=== PATIENT | female | born 1980 | race Caucasian/White ===

== ENCOUNTER 2018-11-08 05:54 | Emergency (ER) | payer MEDICAID ==
[~2018-11-08] VITALS: Ht 160 cm; Wt 91.6 kg
[2018-11-08] MEDS ORDERED: CYCLOBENZAPRINE 10 MG (FLEXERIL) TAB PO STA (06:12)
[2018-11-08] MEDS ORDERED: KETOROLAC 60 MG/2 ML VIAL IM ONE (06:15)
--- NOTE | 2018-11-08 06:19 | ED Upper Extremity ---
General Chief Complaint: Upper Extremity Stated Complaint: CAN'T MOVE LEFT HAND/ STARTING GO KOLBY Source: patient Exam Limitations: no limitations History of Present Illness Date Seen by Provider: November 08, 2018 Time Seen by Provider: 06:00 Initial Comments Patient presents to ER with her father and chief complaint of since yesterday about 5:00 she was starting and motor with her right arm and she certainly appears edges and pain in her left medial forearm. She took some Aleve but the pain still here this morning and she has to go to work. She says been under a lot of stress lately with a divorce or separation. She doesn't have a history of neck pain or back pain. No history of surgeries. She states that her history of back problems is that she carries all her stress in her back and shoulders. She has no dyspnea tenderness or paresthesias in her elbow shoulder or neck. No loss of control of bowel or bladder, weakness numbness or saddle anesthesia. She does smoke pack cigarettes per day. Allergies and Home Medications Allergies Coded Allergies: No Known Drug Allergies (Verified Allergy, Unknown, 07/17/08) Patient Home Medication List Home Medication List Reviewed: Yes Review of Systems Constitutional: No chills, No diaphoresis EENTM: No ear discharge, No hearing loss, No ear pain Respiratory: No cough, No short of breath Cardiovascular: No chest pain, No edema Gastrointestinal: No abdominal pain, No constipation, No diarrhea Genitourinary: No discharge, No dysuria Past Aoiqxoj-Rznxxc-Cwllnr Hx Patient Social History Alcohol Use: Denies Use Recreational Drug Use: Yes Drug of Choice: MJ Smoking Status: Current Everyday Smoker Type Used: Cigarettes Recent Foreign Travel: No Contact w/Someone Who Travel: No Past Medical History Reproductive Disorders: No Physical Exam Vital Signs Capillary Refill : Height, Weight, BMI Height: '" Weight: lbs. oz. kg; BMI Method: General Appearance: WD/WN, no apparent distress HEENT: normal ENT inspection, pharynx normal Neck: full range of motion, normal inspection Cardiovascular: normal peripheral pulses, regular rate, rhythm, no edema Respiratory: lungs clear, normal breath sounds, no respiratory distress, no accessory muscle use Shoulder: normal inspection, non-tender, no evidence of injury, normal ROM Elbow/Forearm: normal inspection, non-tender, no evidence of injury, normal ROM , Left Hand: normal inspection, no evidence of injury, normal ROM, Left, soft tissue tenderness (tender to light palpation over the distal ulna) Neurologic/Tendon: normal sensation, normal motor functions, normal tendon functions, responds to pain, no evidence tendon injury Neurologic/Psychiatric: alert, normal mood/affect, oriented x 3 Skin: normal color, warm/dry Progress/Results/Core Measures Results/Orders My Orders Orders - SHINE SALAS Ketorolac Injection (Toradol Injection) (11/08/18 06:15) Cyclobenzaprine Tablet (Flexeril Tablet) (11/08/18 06:12) Progress Progress Note : Time: 06:18 Progress Note She was pulling the motor with her right arm and has now some paresthesias tenderness to light touch in her left arm. We inspected her neck earlier but it was nontender and full range of motion and no evidence of deformity. She only has tenderness in her distal ulna there is no history of injury nor evidence of clinical injury. We will treat this as a possible laboratory radiculopathy and put her on some NSAIDs and muscle relaxants. We'll have her follow-up next week with her primary care. If she is not seeing some improvement we will suggest maybe steroids. Departure Impression Primary Impression: Paresthesia of left upper extremity Disposition: 01 HOME, SELF-CARE Condition: Stable Departure-Patient Inst. Decision time for Depature: 06:20 Referrals: KEY CAMPOS DO (PCP) Primary Care Physician MUKUL MAC APRN (Family) Primary Care Physician Patient Instructions: Common Wrist Injuries (DC), Paresthesias (DC) Add. Discharge Instructions: Please use heat, topical creams such as your tiger balm, icy hot, Biofreeze as necessary. You may apply these to your neck as well and see if this gives her some relief. Take the Aleve 2 capsules twice a day for the next 2 weeks. Use the muscle relaxant one capsule every 8 hours as necessary if it helps. If you're not seeing some improvement next week follow-up with your primary care provider and discuss further management. Reduce how much you smoke as this may decrease the inflammation and help you heal faster. Go through the range of motion exercises as demonstrated multiple times throughout the day. All discharge instructions reviewed with patient and/or family. Voiced understanding. Scripts Cyclobenzaprine HCl (Cyclobenzaprine HCl) 10 Mg Tablet 10 MG PO Q8H PRN for SPASMS, #20 TAB 0 Refills Prov: SHINE SALAS 11/08/18 Work/School Note: Work Release Form Date Seen in the Emergency Department: November 08, 2018 Return to Work: November 09, 2018 Restrictions: No Restrictions SHINE SALAS November 08, 2018 06:19
[2018-11-08] MEDS ORDERED: CYCL10TA9 PO ×2 (06:23→06:27)
[2018-11-08 06:29] VITALS: BP 121/72
== END 2018-11-08 06:29 | disposition home or self-care (01) ==
LOC: EDUNIT# 05:54 → ER 05:57
DX: R20.2 Paresthesia of skin (principal); F12.10 Cannabis abuse, uncomplicated; F17.210 Nicotine dependence, cigarettes, uncomplicated
CPT/HCPCS: 99284

== ENCOUNTER 2020-07-31 05:29 | Outpatient (RCR) | payer MEDICAID ==
[~2020-07-31] VITALS: Ht 160.2 cm; Wt 99.8 kg
[~2020-07-31 05:29] MED LIST: CARI4.5C PO; CYCL10TA9 PO; NAPR-1070 PO; OXCA600T10 PO
[2020-08-02] MEDS ORDERED: PANT40TA2 PO (11:17)
[2020-08-02] MEDS ORDERED: SUCR1TAB36 PO (13:29)
== END 2020-08-01 11:06 | disposition home or self-care (01) ==
LOC: PREOP 05:29
PROVIDERS: ATTEND Surgery
DX: Z01.818 Encounter for other preprocedural examination (principal); K62.5 Hemorrhage of anus and rectum

== ENCOUNTER 2020-08-02 11:00 | Day surgery (SDC) | payer MEDICAID ==
[~2020-08-02] VITALS: Ht 160.2 cm; Wt 99.8 kg
[2020-08-02] VITALS (11 sets, daily range): BP systolic 108–124; BP diastolic 72–87
[2020-08-02] MEDS ORDERED: NS IV 500 ML 500 ML ONE (11:01)
[2020-08-02] MEDS ORDERED: NS IV 500 ML 500 ML IV PRN (11:15)
[2020-08-02] MEDS ORDERED: LIDOCAINE JELLY 2% 6 ML SYRINGE MM PRN (11:15)
[2020-08-02] MEDS ORDERED: MIDAZOLAM 5 MG/5 ML (VERSED) VIAL IV ONE (11:15)
[2020-08-02] MEDS ORDERED: fentaNYL INJECTION 100 MCG/2 ML AMP IVP ONE (11:15)
--- NOTE | 2020-08-02 11:16 | Conscious Sedation/ASA ---
Conscious Sedation Pre-Proced Time 11:00 ASA Score 2 For ASA 3 and 4: Consider anesthesia and medical clearance. Also, for patients with a history of failed moderate sedation consider anesthesia. Airway Lungs Heart ASA score ASA 1: a normal healthy patient ASA 2: a patient with a mild systemic disease (mid diabetes, controlled hypertension, obesity ASA 3: a patient with a severe systemic disease that limits activity (angina, COPD, prior Myocardial infarction) ASA 4: a patient with an incapacitating disease that is a constant threat to life (CHF, renal failure) ASA 5: a moribund patient not expected to survive 24 hrs. (ruptured aneurysm) ASA 6: a declared brain- patient whose organs are being harvested. For emergent operations, add the letter E after the classification Mallampati Classification Grade 2 Sedation Plan Analgesia, Amnesia, Plan communicated to team members, Discussed options with patient/fam, Discussed risks with patient/fam The patient is an appropriate candidate to undergo the planned procedure, sedation, and anesthesia. The patient immediately re-assessed prior to indication. CHRIS LI MD Aug 02, 2020 11:16
--- NOTE | 2020-08-02 11:16 | Progress Note-Pre Operative ---
Pre-Operative Progress Note H&P Reviewed The H&P was reviewed, patient examined and no changes noted. Date Seen by Provider: Aug 02, 2020 Time Seen by Provider: 11:00 Date H&P Reviewed: Aug 02, 2020 Time H&P Reviewed: 11:00 Pre-Operative Diagnosis: rectal bleed, GERD CHRIS LI MD Aug 02, 2020 11:16
[2020-08-02] MEDS ORDERED: PANT40TA2 PO (11:17)
--- NOTE | 2020-08-02 11:18 | Discharge Inst-Surgical ---
D/C Lap Instructions-KIDO New, Converted, or Re-Newed RX: RX on Chart Follow Up Activity as tolerated High Fiber Diet 25g or more per day Avoid Alcohol, Caffeine, Spicy Klemme and Acid foods. Drink 64 fluid oz or more of fluids per day. Symptoms to Report: Fever over 101 degree F, Nausea/Vomiting If any problems/questions: Contact your physician or go to Emergency Room CHRIS LI MD Aug 02, 2020 11:18
[2020-08-02] MEDS ORDERED: HURRICAINE EXT TUBE (BENZOCAINE) ONE (11:29)
[2020-08-02] MEDS ORDERED: LIDOCAINE JELLY 2% 6 ML SYRINGE ONE (11:29)
[2020-08-02] MEDS ORDERED: HYDROcodone/APAP 5 MG/325 MG (LORTAB) TAB PO PRN (11:30)
[2020-08-02] MEDS ORDERED: morphine INJ 10 MG/ML 1ML (SYR OR VIAL) IVP PRN ×2 (11:30)
[2020-08-02] MEDS ORDERED: ACETAMINOPHEN 325 MG TABLET PO PRN (11:30)
[2020-08-02] MEDS ORDERED: ONDANSETRON 4 MG/2 ML (SDV) Z0FRAN IVP PRN (11:30)
[2020-08-02] MEDS ORDERED: fentaNYL INJECTION 100 MCG/2 ML AMP ONE ×2 (11:31→11:32)
[2020-08-02] MEDS ORDERED: MIDAZOLAM 5 MG/5 ML (VERSED) VIAL ONE ×2 (11:31→11:32)
[2020-08-02] MEDS ORDERED: HURRICAINE EXT TUBE (BENZOCAINE) XX ONE (12:00)
[2020-08-02] MEDS ORDERED: PROPOFOL INJECTION 50 ML IV ONE (12:32)
--- NOTE | 2020-08-02 13:03 | Anesthesia-General Post-Op ---
MAC Patient Condition Mental Status/LOC: Same as Preop Cardiovascular: Satisfactory Nausea/Vomiting: Absent Respiratory: Satisfactory Pain: Controlled Complications: Absent Post Op Complications Complications None Follow Up Care/Instructions Patient Instructions None needed. Anesthesiology Discharge Order Discharge Order Patient is doing well, no complaints, stable vital signs, no apparent adverse anesthesia problems. No complications reported per nursing. CURTIS CASTRO CRNA Aug 02, 2020 13:03
[2020-08-02] MEDS ORDERED: SUCR1TAB36 PO (13:29)
--- NOTE | 2020-08-02 14:55 | OPERATIVE REPORT ---
DATE OF SERVICE: 08/02/2020 ATTENDING PRIMARY COLLET MAKER: JS Sylvester. PREOPERATIVE DIAGNOSES: Dark tarry stools, history of peptic ulcer disease and gastroesophageal reflux disease. POSTOPERATIVE DIAGNOSES: Reflux esophagitis between stage II and III, small hiatal hernia approximately 2.5 cm in size, mild to moderate gastritis, chronic stage II external and internal hemorrhoids. PROCEDURE: EGD with biopsy, colonoscopy. SURGEON: Chris Li MD. ANESTHESIA: Monitored anesthesia care. ESTIMATED BLOOD LOSS: Minimal. FINDINGS: Reflux esophagitis between stage II and III, small hiatal hernia approximately 2.5 cm in size, mild to moderate gastritis, chronic stage II external and internal hemorrhoids. DISPOSITION: The patient tolerated the procedure well. INDICATIONS: The patient is a 40-year-old female referred over to us for rectal bleeding. She states that she has had intermittent episodes of dark tarry stools for the past year. She also has had a history of constipation as well. Upon further questioning, she also does report a longstanding history of gastroesophageal reflux disease and peptic ulcer disease and a lot of this is stress-induced. She does not report any family history of colon cancer. DESCRIPTION OF PROCEDURE: The patient was brought to the endoscopy suite, laid in left lateral decubitus position with head slightly elevated. After adequate IV pain and sedative medications and monitored anesthesia care, the mouthpiece was applied. The endoscope was placed in the mouth, visualizing the pharynx and hypopharyngeal region. Vocal cords, epiglottis and vallecula identified and appeared to be normal. The endoscope was then gently intubated into the esophageal opening and esophagus insufflated. The endoscope was then advanced to the first, second and third portion of esophagus at the level of GE junction, a reflux esophagitis between stage II and III identified. There were no ulcers or strictures identified in this region. A biopsy was taken with forceps with visualization of good hemostasis. The endoscope was then advanced into the stomach and endoscope retroflexed, visualizing a small hiatal hernia approximately 2.5 cm in size. There was a mild to moderate gastritis. No formal ulcerations, polyps, or any neoplasms. A biopsy was taken of the antrum to rule out H. pylori with visualization of good hemostasis. The endoscope was then advanced to the pylorus and the first and second portion of the duodenum, which did not reveal any ulcerations as well as no distal obstructions. The endoscope was then slowly withdrawn while taking a second look and suctioning of residual air with no additional findings. We then proceeded with the colonoscopy portion of the procedure and a digital rectal examination was performed, which revealed chronic stage II external and internal hemorrhoids, not actively edematous nor inflamed and no bleeding. Normal sphincter tone was felt and there were no palpable masses. The endoscope was then intubated to the anus and rectum gently insufflated. The endoscope was then advanced to the valves of Whitley of the rectum with no polyps or any neoplasms identified. We then proceeded through the sigmoid colon where no diverticulosis identified. The endoscope was then advanced to the remainder of the descending, transverse and ascending colon to the cecum. These segments were normal. There were no polyps or any active bleeding sources identified. The endoscope was then slowly withdrawn while taking a second look and suctioning of residual air with no additional findings. The patient tolerated the procedure well. We will recommend the necessary lifestyle and diet accommodation including small and more frequent meals as well as avoidance of eating at night as well as proceeding with smoking cessation as well as avoidance of caffeinated beverages, spicy, greasy and acidic foods. We will also start her on Protonix 40 mg daily as well as Carafate 1 gram q.i.d. for the next 2 weeks, then on a p.r.n. basis. We had also already talked to her about high fiber diet with fiber supplementation and should be at least 25 to 30 grams daily as well as significant amounts of water to promote soft stools on a daily basis. She does not have a family history of colon cancer and if she is asymptomatic from a lower gastrointestinal perspective, she does not need another colonoscopy for another 10 years. Job ID: [id number] DocumentID: [id number] Dictated Date: 08/02/2020 13:06:00 Power Sewing Machine Operator Date: 08/02/2020 14:55:09 Dictated By: CHRIS LI MD
== END 2020-08-02 13:50 | disposition home or self-care (01) ==
LOC: ENDO 11:00
PROVIDERS: ATTEND Surgery
DX: K21.00 Gastro-esophageal reflux disease with esophagitis, without bleeding (principal); K29.50 Unspecified chronic gastritis without bleeding; K44.9 Diaphragmatic hernia without obstruction or gangrene; K64.1 Second degree hemorrhoids; B96.81 Helicobacter pylori [H. pylori] as the cause of diseases classified elsewhere; F20.9 Schizophrenia, unspecified; F31.9 Bipolar disorder, unspecified; F17.210 Nicotine dependence, cigarettes, uncomplicated; Z79.899 Other long term (current) drug therapy; Z88.8 Allergy status to other drugs, medicaments and biological substances; Z87.11 Personal history of peptic ulcer disease; Z80.3 Family history of malignant neoplasm of breast; Z83.3 Family history of diabetes mellitus
CPT/HCPCS: 84703; 88305; 88342

== ENCOUNTER 2021-08-04 12:26 | Emergency (ER) | payer MEDICAID ==
[~2021-08-04] VITALS: Ht 155 cm; Wt 103.0 kg
[~2021-08-04 12:26] MED LIST changes: +CYCL10TA25 PO; -CYCL10TA9 PO; +PANT40TA2 PO; +SUCR1TAB36 PO
--- NOTE | 2021-08-04 12:48 | ED Lower Extremity ---
General Stated Complaint: RIGHT KNEE PAIN Source: patient Exam Limitations: no limitations (LINNETTE MARSHALL) History of Present Illness Date Seen by Provider: Aug 04, 2021 Time Seen by Provider: 12:47 Initial Comments Patient is a 41-year-old female presents ED with right knee pain. Patient states yesterday evening she was walking up a hill with a wagon full of wood when she stepped and felt a loud "pop" in her right knee. She states the knee feels unstable when she walks. Difficulty with plantarflexion with pain to the right posterior knee and right anterior knee. Normal active range of motion. No obvious bone deformity, swelling or bruising. She states she injured her knee last Friday and felt the pain but that improved. No history of previous fracture. Denies any ankle pain, fever, chills. She states she attempts to walk but feels like her knee needs to pop. Denies chest pain, shortness of breath, cough, fever. (LINNETTE MARSHALL) Allergies and Home Medications Allergies Coded Allergies: buspirone (Unverified Allergy, Unknown, 07/27/20) Patient Home Medication List Home Medication List Reviewed: Yes (LINNETTE MARSHALL) Cariprazine Hydrochloride (Vraylar) 4.5 Mg Capsule, 4.5 MG PO DAILY, (Reported) Entered as Reported by: LISSY RICKS on 07/27/20 1036 Hydrocodone/Acetaminophen (Hydrocodone-Acetamin 5-325 mg) 1 Each Tablet, 1 TAB PO Q4H PRN for PAIN-MODERATE (5-7) Prescribed by: JS RAMIREZ on 08/04/21 1353 Naproxen Sodium (Anaprox Ds) 550 Mg Tablet, 550 MG PO PRN, (Reported) Entered as Reported by: LISSY RICKS on 07/27/20 1036 Oxcarbazepine (Oxcarbazepine) 600 Mg Tablet, 600 MG PO DAILY, (Reported) Entered as Reported by: LISSY RICKS on 07/27/20 1036 Pantoprazole Sodium (Protonix) 40 Mg Tablet.dr, 40 MG PO DAILY Prescribed by: CHRIS LI on 08/02/20 1117 Sucralfate (Carafate) 1 Gm Tablet, 1 GM PO QID Prescribed by: SANTIAGO COBB on 08/02/20 1329 [hy] Prescribed by: JS RAMIREZ on 08/04/21 1353 Review of Systems Constitutional: no symptoms reported, see HPI; No chills EENTM: No hearing loss, No ear pain, No blurred vision, No vision loss, No throat pain, No throat swelling Respiratory: No cough, No orthopnea, No short of breath Cardiovascular: No chest pain, No edema Gastrointestinal: No abdominal pain, No diarrhea, No nausea, No vomiting Genitourinary: No decreased output, No discharge Musculoskeletal: joint pain, muscle pain, muscle stiffness Skin: No change in color, No change in hair/nails (LINNETTE MARSHALL) All Other Systems Reviewed Negative Unless Noted: Yes (LINNETTE MARSHALL) Past Cjwzeus-Yacjsj-Saquws Hx Past Medical History Surgeries: Yes (TUBAL, C SECTION 2008; ) Tubal Ligation Respiratory: Yes Asthma Cardiac: No Neurological: No Reproductive Disorders: No Sexually Transmitted Disease: Yes (clamydia) Genitourinary: No Gastrointestinal: No Musculoskeletal: No Endocrine: No HEENT: No Hearing Impairment: Denies Cancer: No Psychosocial: No Sleep Difficulties, Anxiety, PTSD, Bipolar, Schizophrenia, Depression Blood Disorders: No Adverse Reaction/Blood Tranf: No (LINNETTE MARSHALL) Physical Exam Vital Signs Vital Signs - First Documented 08/04/21 12:36 Temp 36.4 Pulse 112 Resp 20 B/P (MAP) 107/47 (67) Pulse Ox 97 O2 Delivery Room Air (MALIK HENSLEY MD) Vital Signs Capillary Refill : (LINNETTE MARSHALL) Height, Weight, BMI Height: 5'3.00" Weight: 202lbs. oz. 91.092866ji; 38.88 BMI Method:Stated General Appearance: WD/WN, no apparent distress HEENT: PERRL/EOMI, normal ENT inspection, TMs normal, pharynx normal Neck: non-tender, full range of motion, supple, normal inspection Cardiovascular: regular rate, rhythm, no edema, no gallop, no JVD Respiratory: chest non-tender, lungs clear, normal breath sounds, no respiratory distress, no accessory muscle use Gastrointestinal: normal bowel sounds, non tender, soft, no organomegaly, no pulsatile mass Back: normal inspection, no CVA tenderness Hips: bilateral hip non-tender, bilateral hip normal inspection, bilateral hip normal range of motion Knees: right knee pain (Right anterior knee tenderness.), right knee soft tissue tenderness Ankles: bilateral ankle non-tender, bilateral ankle normal inspection, bilateral ankle normal range of motion Feet: bilateral foot non-tender, bilateral foot normal inspection, bilateral foot normal range of motion Neurologic/Tendon: normal sensation Neurologic/Psychiatric: forest technology professor II-XII nml as tested, no motor/sensory deficits, alert, normal mood/affect, oriented x 3 Skin: normal color, warm/dry (LINNETTE MARSHALL) Progress/Results/Core Measures Results/Orders Medications Given in ED Current Medications Medications Dose Ordered Sig/Natty Route Start Time Stop Time Status Last Admin Dose Admin Acetaminophen/ Hydrocodone Bitart 1 ea ONCE ONCE PO 08/04/21 13:00 08/04/21 13:01 DC 08/04/21 13:00 1 EA Ketorolac Tromethamine 30 mg ONCE ONCE IM 08/04/21 14:00 08/04/21 14:01 DC 08/04/21 14:06 30 MG (MALIK HENSLEY MD) Vital Signs/I&O 08/04/21 08/04/21 12:36 14:13 Temp 36.4 Pulse 112 98 Resp 20 18 B/P (MAP) 107/47 (67) 117/64 Pulse Ox 97 98 O2 Delivery Room Air Room Air (MALIK HENSLEY MD) Departure Communication (Admissions) X-ray negative for fracture. No large joint effusion noted. Flexion to 90 d egrees with full extension. No specific laxity. Pain with Suad test. Concerning for meniscus injury versus knee ligament injury. Difficulty standing. Ice was applied. Was given dose of pain medication Toradol. Will discharge with pain medication. Continue with naproxen at home. Orthopedic follow-up in 7 to 10 days. Recommend ice and elevate. Thomas wrap was provided with brace. Return precautions were discussed with patient. Further evaluation will be needed. (LINNETTE MARSHALL) Impression Primary Impression: Knee sprain Disposition: HOME, SELF-CARE Condition: Stable Departure-Patient Inst. Decision time for Depature: 13:51 (LINNETTE MARSHALL) Referrals: [facility] (PCP) Primary Care Physician MUKUL MAC APRN (Family) Primary Care Physician ABDULAZIZ HAIDER MD Patient Instructions: Knee Sprain ED Scripts Hydrocodone/Acetaminophen (Hydrocodone-Acetamin 5-325 mg) 1 Each Tablet 1 TAB PO Q4H PRN for PAIN-MODERATE (5-7), #10 TAB Prov: LINNETTE MARSHALL 08/04/21 [hy] No Conflict Check Prov: LINNETTE MARSHALL 08/04/21 ATTENDING PHYSICIAN NOTE: I was physically present as attending physician in the emergency department during the care of this patient, but I was not directly involved in the decision making or delivery of care for this patient. (MALIK HENSLEY MD) LINNETTE MARSHALL Aug 04, 2021 12:48 MALIK HENSLEY MD Aug 04, 2021 19:07
[2021-08-04] MEDS ORDERED: HYDROcodone/APAP 5 MG/325 MG (LORTAB) TAB PO ONE (13:00)
--- NOTE | 2021-08-04 13:28 | Diagnostic Imaging Report ---
CLINICAL HISTORY: Right knee pain. COMPARISON: None. TECHNIQUE: 3 views of the right knee. FINDINGS: There is no acute fracture or dislocation of the right knee. Alignment is anatomic. The imaged joint spaces are preserved. No joint effusion is seen in the right knee. The surrounding soft tissues are unremarkable. IMPRESSION: 1. No acute fracture or dislocation is seen in the right knee. No joint effusion. Dictated by: Dictated on workstation # [id number]
[2021-08-04] MEDS ORDERED: hy (13:53)
[2021-08-04] MEDS ORDERED: ACHD5005 PO (13:53)
[2021-08-04] MEDS ORDERED: KETOROLAC 30 MG/ML VIAL IVP ONE (14:00)
[2021-08-04] MEDS ORDERED: KETOROLAC 30 MG/ML VIAL IM ONE (14:00)
[2021-08-04 14:13] VITALS: BP 117/64
== END 2021-08-04 14:13 | disposition home or self-care (01) ==
LOC: EDUNIT# 12:26 → ER 12:32
DX: S83.91XA Sprain of unspecified site of right knee, initial encounter (principal); J45.909 Unspecified asthma, uncomplicated; F41.9 Anxiety disorder, unspecified; F31.9 Bipolar disorder, unspecified; F20.9 Schizophrenia, unspecified; Z79.899 Other long term (current) drug therapy; X50.1XXA Overexertion from prolonged static or awkward postures, initial encounter
CPT/HCPCS: 73562

== ENCOUNTER 2023-05-06 18:49 | Emergency (ER) | payer MEDICAID ==
[~2023-05-06 18:49] MED LIST changes: +ACHD5005 PO; +hy
[2023-05-06] MEDS ORDERED: HYDROcodone/ACETAMINOPHEN 5 MG/325 MG TABLET PO ONE (20:00)
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
--- NOTE | 2023-05-06 20:27 | Diagnostic Imaging Report ---
EXAMINATION: Left knee radiograph EXAM DATE: 05/06/2023 8:23 PM COMPARISON: None available. HISTORY: left knee pain TECHNIQUE: 3 views FINDINGS: There is no acute fracture, dislocation, or destructive osseous process. The joint spaces are normal. The soft tissues are normal. IMPRESSION: 1. No acute osseous abnormality. Dictated by: Dictated on workstation # [id number]
[2023-05-06] MEDS ORDERED: ACHD5005 PO (20:34)
[2023-05-06 20:41] VITALS: BP 138/89
== END 2023-05-06 20:41 | disposition home or self-care (01) ==
LOC: EDUNIT# 18:49 → ER 18:51
DX: S93.402A Sprain of unspecified ligament of left ankle, initial encounter (principal); F17.210 Nicotine dependence, cigarettes, uncomplicated; X58.XXXA Exposure to other specified factors, initial encounter; Y93.01 Activity, walking, marching and hiking; Y92.59 Other trade areas as the place of occurrence of the external cause; Y99.0 Civilian activity done for income or pay
CPT/HCPCS: 73562

== ENCOUNTER → 2023-06-04 | Outpatient (CLI) | payer MEDICAID ==
--- NOTE | 2023-06-04 12:23 | Diagnostic Imaging Report ---
MRI LT LOWER EXT JOINT W/O TECHNIQUE: Multiplanar, multisequence MR imaging of the left knee was performed without contrast. COMPARISON: None available. INDICATION: Knee pain after injury FINDINGS: MENISCI Medial meniscus: Incomplete radial free edge tearing in the posterior root of the medial meniscus. There is 4 mm extrusion of the body into the gutter. Lateral meniscus: Normal. LIGAMENTS ACL: Intact. PCL: Intact. MCL: Intact. LCL: The lateral collateral ligamentous complex is intact. EXTENSOR MECHANISM The extensor mechanism is intact. CARTILAGE Medial compartment: A broad region of full-thickness articular cartilage loss is present in the central posterior weight-bearing aspect the medial compartment. Lateral compartment: The lateral compartment articular cartilage is preserved without high-grade chondromalacia. Patellofemoral compartment: Partial thickness chondromalacia in the lateral patella facet. BONE No fracture, stress fracture or osteonecrosis. SOFT TISSUE Moderate-sized knee joint effusion and López's cyst. IMPRESSION: 1. Incomplete radial tear at the posterior root medial meniscus. 2. 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 Dictated by: Dictated on workstation # [id number]
== END ==
LOC: RAD 09:12
PROVIDERS: ATTEND Nurse Practitioner
DX: S83.242A Other tear of medial meniscus, current injury, left knee, initial encounter (principal); M17.12 Unilateral primary osteoarthritis, left knee
CPT/HCPCS: 73721